=== PATIENT | female | born 1965 | race American Indian/Alaskan Native ===

== ENCOUNTER 2017-03-09 09:56 | Outpatient (CLI) | payer OTHER ==
--- NOTE | 2017-03-09 11:13 | Mammography Report ---
BONE DENSITY STUDY: DEFINITIONS: BMD = Bone Mineral Density T-score = BMD related to mean peak bone mass of young adult (mean expressed in Standard Deviation) Z-score = Age matched BMD expressed in SD World Health Organization (WHO) Diagnostic Criteria Normal T-score > -1 SD Osteopenia T-score between -1 and -2.4 SD Osteoporosis T-score -2.5 SD or below FINDINGS: The weighted average BMD of lumbar spine L1-L4 is 1.192 with a T-score of 0.4. The weighted average BMD of hip is 1.035 with a T-score of 0.0. IMPRESSION: The patient's T-score is diagnostic for normal bone density and low relative risk for fracture. NOTE: BMD is not the only risk factor for fracture; also consider factors such as the patient's age, risk of falling, previous osteoporotic fracture, family history of osteoporotic fractures, current smoker, and low body weight. Mejia's triangle is a region of interest in femur, predominantly of trabecular bone. It is not a true anatomic site, and [facility] does not recommend its use clinically.
--- NOTE | 2017-03-09 11:15 | Mammography Report ---
BILATERAL MAMMOGRAM with CAD: HISTORY: Cancer screening. The patient does not remember where her prior mammogram was attained. FINDINGS: The breast tissue is heterogeneously dense, which could obscure detection of small masses (approximately 50%-75% glandular). No mass, distortion, suspicious calcification, or skin change is seen. IMPRESSION: Negative mammogram. There is no mammographic evidence of malignancy. RECOMMENDATION: Follow-up per ACS guidelines. BI-RADS CATEGORY: 1 = Negative ACR BI-RADS MAMMOGRAPHIC CODES: 0 = Needs additional imaging evaluation; 1 = Negative; 2 = Benign; 3 = Probably benign; 4 = Suspicious; 5 = Malignant; 6 = Known biopsy-proven malignancy COMMENT: 1. Dense breast tissue, i.e., adenosis, fibrocystic changes, etc., may obscure an underlying neoplasm. 2. Approximately 10% of cancers are not detected with mammography. 3. A negative mammography report should not delay biopsy if a clinically suspicious mass is present. COMMENT: Patient follow-up letters are generated in [employer].
== END 2017-03-09 09:57 | disposition home or self-care (01) ==
LOC: SPVWC 09:56
PROVIDERS: ATTEND Internal Medicine Infectious Disease
DX: Z12.31 Encounter for screening mammogram for malignant neoplasm of breast (principal); Z13.820 Encounter for screening for osteoporosis
CPT/HCPCS: 77080; G0202; 77067

== ENCOUNTER 2019-06-13 14:11 | Outpatient (CLI) | payer OTHER ==
--- NOTE | 2019-06-13 14:47 | Mammography Report ---
DIGITAL DIAGNOSTIC MAMMOGRAM WITH CAD, -- 06/13/2019 INDICATION: Recall to evaluate calcifications. TECHNIQUE: Digital left mammographic imaging was performed. Magnification views were obtained. This examination was interpreted with the benefit of Computer-aided Detection analysis. COMPARISON: 04/13/2019 FINDINGS: Breast Density: The breasts are heterogeneously dense, which may obscure small masses. Lateral medial and lateral medial and CC magnification views were performed. Previously identified up per calcifications demonstrate layering on the lateral mag view and most are smudgy on the CC mag vie w. No mass or architectural distortion. IMPRESSION: Benign calcifications. Follow up recommendation: Routine yearly BI-RADS Category 2: Benign. A "normal" or negative report should not discourage follow up or biopsy of a clinically significant f inding. A written summary of these findings will be mailed to the patient. The patient will be entered into a mammography reporting system which will generate a reminder letter for the patient's next appointmen t at the appropriate interval. According to the [employer], yearly mammograms are recommended starting at age 40 and continuing as long as a woman is in good health. Breast MRI is recommended for women with an kiko roximately 20-25% or greater lifetime risk of breast cancer, including women with a strong family his tory of breast or ovarian cancer and women who have been treated for Hodgkin's disease. Signer Name: Arturo Unger MD Signed: 06/13/2019 2:42 PM Workstation Name: [id number]
== END 2019-06-13 14:12 | disposition home or self-care (01) ==
LOC: SPVWC 14:11
PROVIDERS: ATTEND Internal Medicine Infectious Disease
DX: R92.1 Mammographic calcification found on diagnostic imaging of breast (principal)